=== PATIENT | male | born 1965 | race Caucasian/White ===

== ENCOUNTER 2025-05-14 08:17 | Outpatient (AMB) | payer MEDICARE, SELFPAY ==
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
== END 2025-05-14 08:54 | disposition home or self-care (01) ==
LOC: HO.HMCFMS 08:18
PROVIDERS: PCP Student in an Organized Health Care Education/Training Program; Visit Provider Student in an Organized Health Care Education/Training Program
DX: S46.212A Strain of muscle, fascia and tendon of other parts of biceps, left arm, initial encounter (principal); M75.102 Unspecified rotator cuff tear or rupture of left shoulder, not specified as traumatic; M48.00 Spinal stenosis, site unspecified; Z79.890 Hormone replacement therapy; R46.89 Other symptoms and signs involving appearance and behavior; Z23 Encounter for immunization